=== PATIENT | male | born 1980 | race African-American/Black ===

== ENCOUNTER 2018-08-01 15:00 | Emergency (ER) | payer MEDICARE, MEDICAID ==
[~2018-08-01] VITALS: Ht 177.8 cm; Wt 77.0 kg
[2018-08-01] MEDS ORDERED: LIDOCAINE HCL/PF 1% 10 MG/ML 5ML VIAL IJ ONE (16:15)
[2018-08-01] MEDS ORDERED: IBUPROFEN 600MG TABLET PO ONE (16:15)
[2018-08-01] MEDS ORDERED: BACITRACIN ZINC OINT UDPKT TOP ONE (16:15)
[2018-08-01] MEDS ORDERED: TETANUS, DIPHTHERIA, PERTUSSIS VAC/PF 0.5ML (>7YR OLD) IM ONE (16:15)
[2018-08-01 18:01] VITALS: BP 109/68
== END 2018-08-01 18:03 | disposition home or self-care (01) ==
LOC: ER 15:00
DX: S71.012A Laceration without foreign body, left hip, initial encounter (principal); E11.9 Type 2 diabetes mellitus without complications; F20.9 Schizophrenia, unspecified; F17.200 Nicotine dependence, unspecified, uncomplicated; F12.10 Cannabis abuse, uncomplicated; X58.XXXA Exposure to other specified factors, initial encounter; Y93.89 Activity, other specified; Y92.89 Other specified places as the place of occurrence of the external cause; Y99.8 Other external cause status
CPT/HCPCS: 12002; 90471; 90715; 99283

== ENCOUNTER 2018-08-03 08:12 | Emergency (ER) | payer MEDICARE, MEDICAID ==
[~2018-08-03] VITALS: Ht 175.3 cm; Wt 69.0 kg
[2018-08-03 08:22] VITALS: BP 111/60
== END 2018-08-03 09:29 | disposition home or self-care (01) ==
LOC: ER 08:12
DX: S71.012D Laceration without foreign body, left hip, subsequent encounter (principal); F20.9 Schizophrenia, unspecified; E11.9 Type 2 diabetes mellitus without complications; F12.10 Cannabis abuse, uncomplicated; X58.XXXD Exposure to other specified factors, subsequent encounter
CPT/HCPCS: 99281; 99282

== ENCOUNTER 2018-08-11 09:36 | Emergency (ER) | payer MEDICARE, MEDICAID ==
[~2018-08-11] VITALS: Ht 177.8 cm; Wt 65.0 kg
[2018-08-11] MEDS ORDERED: BACITRACIN ZINC OINT UDPKT TOP ONE (11:45)
[2018-08-11 12:14] VITALS: BP 109/72
== END 2018-08-11 12:14 | disposition home or self-care (01) ==
LOC: ER 09:36
DX: S71.012D Laceration without foreign body, left hip, subsequent encounter (principal); X58.XXXD Exposure to other specified factors, subsequent encounter; F17.200 Nicotine dependence, unspecified, uncomplicated; F12.10 Cannabis abuse, uncomplicated; E11.9 Type 2 diabetes mellitus without complications; F20.9 Schizophrenia, unspecified
CPT/HCPCS: 99283